=== PATIENT | female | born 1990 | race Two or more races ===

== ENCOUNTER 2016-02-10 13:18 | Emergency (ER) | payer OTHER | END 2016-02-10 14:45 | disposition left against medical advice (07) | LOC: UCEAST 13:18 | DX: Z53.21 Procedure and treatment not carried out due to patient leaving prior to being seen by health care provider (principal); J02.9 Acute pharyngitis, unspecified; H92.09 Otalgia, unspecified ear ==

== ENCOUNTER 2016-02-10 20:11 | Emergency (ER) | payer OTHER ==
[2016-02-10 20:33] VITALS: BP 131/92
[2016-02-10] MEDS ORDERED: Amoxicillin/Clavulanate TAB* 875 MG PO ONE (20:53)
--- NOTE | 2016-02-10 20:53 | UC ---
Ear Complaint HPI - HPI Summary HPI Summary: Worsening URI Sx sever pain in both ears and st for 3 days - History of Current Complaint Chief Complaint: UCRespiratory Stated Complaint: SORE THROAT, AND EAR ACHE Time Seen by Provider: 02/10/16 20:48 Hx Obtained From: Patient Hx Last Menstrual Period: 2 MONTHS AGO ?: No Onset/Duration: Gradual Onset, Lasting Days - 7, Worse Since - past 3 days Severity Initially: Mild Severity Currently: Moderate Aggravating Factors: Nothing Alleviating Factors: Nothing Associated Signs/Symptoms: Positive: URI Symptoms - Allergies/Home Medications Allergies/Adverse Reactions: Allergies Allergy/AdvReac Type Severity Reaction Status Date / Time No Known Allergies Allergy Verified 02/10/16 20:32 Home Medications: Home Medications guaiFENesin ER TAB [Mucinex*] PRN 02/10/16 [History] PMH/Surg Hx/FS Hx/Imm Hx Previously Healthy: No Endocrine History Of: Denies: Diabetes, Thyroid Disease, Hyperthyroidism, Hypothyroidism, Dyslipidemia Cardiovascular History Of: Denies: Cardiac Disorders, Hypertension, Pacemaker/ICD Respiratory History Of: Reports: Asthma Denies: COPD GI/ History Of: Denies: Gastroesophageal Reflux, Ulcer, Renal Disease Neurological History Of: Denies: Seizures Psychological History Of: Denies: Anxiety, Depression, Bipolar Disorder, Schizophrenia, Post Traumatic Stress Disorder Cancer History Of: Denies: Lung Cancer, Colorectal Cancer, Breast Cancer, Prostate Cancer, Cervical Cancer - Surgical History Surgical History: None - Family History Known Family History: Positive: None - Social History Occupation: Employed Full-time Lives: With Family Alcohol Use: Rare Substance Use Type: None Smoking Status (MU): Never Smoked Tobacco Review of Systems Constitutional: Chills, Fatigue Skin: Negative Eyes: Negative ENT: Sore Throat, Ear Ache, Nasal Discharge Respiratory: Negative Cardiovascular: Negative Gastrointestinal: Negative Genitourinary: Negative Motor: Negative Neurovascular: Negative Musculoskeletal: Negative Neurological: Headache Psychological: Negative All Other Systems Reviewed And Are Negative: Yes Physical Exam Triage Information Reviewed: Yes Appearance: Well-Nourished, Ill-Appearing - mild, Pain Distress - mild Vital Signs: Initial Vital Signs Temp 98.2 F 02/10/16 20:28 Pulse 85 02/10/16 20:28 Resp 16 02/10/16 20:28 BP 131/92 02/10/16 20:28 Pulse Ox 100 02/10/16 20:28 Vital Signs Reviewed: Yes Eye Exam: Normal Eyes: Positive: Conjunctiva Clear ENT Exam: Normal ENT: Positive: Normal ENT inspection, Hearing grossly normal, Pharyngeal erythema, Nasal congestion, Nasal drainage, TMs normal. Negative: Tonsillar swelling, Tonsillar exudate, Trismus, Muffled/hoarse voice Neck exam: Normal Neck: Positive: Supple, Nontender, No Lymphadenopathy Respiratory Exam: Normal Respiratory: Positive: Chest non-tender, Lungs clear, Normal breath sounds, No respiratory distress, No accessory muscle use Cardiovascular Exam: Normal Cardiovascular: Positive: RRR, No Murmur, Pulses Normal, Brisk Capillary Refill Musculoskeletal Exam: Normal Musculoskeletal: Positive: Strength Intact, ROM Intact, No Edema Neurological Exam: Normal Neurological: Positive: Alert, Muscle Tone Normal Psychological Exam: Normal Skin Exam: Normal Ear Complaint Course/Dx - Course Course Of Treatment: Augmentin, flonase, increase fluids, tylenol, ibuprofen re- check prn - Differential Dx/Diagnosis Differential Diagnosis/HQI/PQRI: Cellulitis, Otitis Externa, Otitis Media, Pharyngitis, URI Provider Diagnoses: Sinusitis Discharge - Discharge Plan Condition: Stable Disposition: HOME Prescriptions: Amoxicillin/Clavulanate TAB* [Augmentin TAB 875*] 875 mg PO BID #18 tab Fluticasone NASAL SPRAY 50MCG* [Flonase NASAL SPRAY 50MCG*] 2 spray BOTH NARES DAILY #1 btl Patient Education Materials: Sinusitis (ED), Serous Otitis Media (ED), How to Use Nasal [place] (ED) Referrals: Kathi Waddell MD [Primary Care Provider] - If Needed
[2016-02-10] MEDS ORDERED: Amoxicillin/Clavulanate TAB* 875 MG ONE (21:00)
== END 2016-02-10 21:09 | disposition home or self-care (01) ==
LOC: UCEAST 20:11
DX: J32.9 Chronic sinusitis, unspecified (principal)
CPT/HCPCS: 99212; A9270-GY; G0463

== ENCOUNTER 2016-07-04 15:38 | Emergency (ER) | payer SELFPAY ==
[2016-07-04 16:30] VITALS: BP 127/68
--- NOTE | 2016-07-04 16:50 | UC ---
Throat Pain/Nasal Daniel HPI - HPI Summary HPI Summary: THREE WEEKS OF NASAL CONGESTION, PRODUCTIVE COUGH. NO FEVER. HAD SORETHROAT, BUT IT RESOLVED. - History of Current Complaint Chief Complaint: UCRespiratory Stated Complaint: COUGH Time Seen by Provider: 07/04/16 16:23 Hx Obtained From: Patient Hx Last Menstrual Period: Irregular periods. Onset/Duration: Gradual Onset, Lasting Weeks, Still Present Severity: Moderate Cough: Nonproductive Associated Signs & Symptoms: Positive: Hoarseness, Nasal Discharge - Epiglottits Risk Factors Epiglottis Risk Factors: Negative - Allergies/Home Medications Allergies/Adverse Reactions: Allergies Allergy/AdvReac Type Severity Reaction Status Date / Time No Known Allergies Allergy Verified 07/04/16 16:30 Home Medications: Home Medications Mometasone/Formoter 100/5 MDI* [Dulera 100/5 MDI*] 2 puff INH BID PRN 07/04/16 [ History Confirmed 07/04/16] PMH/Surg Hx/FS Hx/Imm Hx Previously Healthy: Yes Endocrine History Of: Denies: Diabetes, Thyroid Disease, Hyperthyroidism, Hypothyroidism, Dyslipidemia Cardiovascular History Of: Denies: Cardiac Disorders, Hypertension, Pacemaker/ICD Respiratory History Of: Reports: Asthma Denies: COPD GI/ History Of: Denies: Gastroesophageal Reflux, Ulcer, Renal Disease Neurological History Of: Denies: Seizures Psychological History Of: Denies: Anxiety, Depression, Bipolar Disorder, Schizophrenia, Post Traumatic Stress Disorder Cancer History Of: Denies: Lung Cancer, Colorectal Cancer, Breast Cancer, Prostate Cancer, Cervical Cancer - Surgical History Surgical History: None - Family History Known Family History: Positive: None Negative: Respiratory Disease - Social History Occupation: Employed Full-time Lives: With Family Alcohol Use: Occasionally Substance Use Type: Marijuana Smoking Status (MU): Light Every Day Tobacco Smoker Review of Systems Constitutional: Negative Skin: Negative Eyes: Negative ENT: Nasal Discharge Respiratory: Cough Cardiovascular: Negative Gastrointestinal: Negative Genitourinary: Negative Motor: Negative Neurovascular: Negative Musculoskeletal: Negative Neurological: Negative Psychological: Negative All Other Systems Reviewed And Are Negative: Yes Physical Exam Triage Information Reviewed: Yes Appearance: Well-Appearing, No Pain Distress, Well-Nourished Vital Signs: Initial Vital Signs Temp 97.8 F 07/04/16 16:27 Pulse 88 07/04/16 16:27 Resp 16 05/27/17 16:27 BP 127/68 07/04/16 16:27 Pulse Ox 98 07/04/16 16:27 Vital Signs Reviewed: Yes Eye Exam: Normal ENT: Positive: Hearing grossly normal, Pharynx normal, Nasal congestion, TM bulging, TM dull Dental Exam: Normal Neck exam: Normal Neck: Positive: Supple, Nontender, No Lymphadenopathy Respiratory Exam: Other - COUGH Respiratory: Positive: Chest non-tender, Lungs clear, Normal breath sounds, No respiratory distress, No accessory muscle use Cardiovascular Exam: Normal Cardiovascular: Positive: RRR, No Murmur, Pulses Normal Abdominal Exam: Normal Musculoskeletal Exam: Normal Musculoskeletal: Positive: Strength Intact, ROM Intact Neurological Exam: Normal Psychological Exam: Normal Psychological: Positive: Normal Response To Family Skin Exam: Normal Throat Pain/Nasal Course/Dx - Differential Dx/Diagnosis Differential Diagnosis/HQI/PQRI: Pharyngitis, Sinusitis, URI Provider Diagnoses: RHINOSINUSITIS; UPPER RESPIRATORY INFECTION Discharge - Discharge Plan Condition: Stable Disposition: HOME Prescriptions: Benzonatate CAP* [Tessalon 100 MG CAP*] 100 mg PO TID PRN #15 cap PRN Reason: Cough Fluticasone NASAL SPRAY 50MCG* [Flonase NASAL SPRAY 50MCG*] 2 spray BOTH NARES DAILY #1 btl Patient Education Materials: Upper Respiratory Infection (ED), Rhinosinusitis ( ED) Referrals: Kathi Waddell MD [Primary Care Provider] -
== END 2016-07-04 16:55 | disposition home or self-care (01) ==
LOC: UCEAST 15:38
DX: J32.9 Chronic sinusitis, unspecified (principal); J06.9 Acute upper respiratory infection, unspecified; J45.909 Unspecified asthma, uncomplicated; F17.210 Nicotine dependence, cigarettes, uncomplicated
CPT/HCPCS: 99212; G0463

== ENCOUNTER 2017-02-27 18:04 | Emergency (ER) | payer OTHER ==
[2017-02-27 19:57] VITALS: BP 116/56
[2017-02-27] MEDS ORDERED: Ibuprofen TAB* 400 MG PO ONE (20:21)
--- NOTE | 2017-02-27 20:24 | UC ---
Respiratory Complaint HPI - History of Current Complaint Chief Complaint: UCRespiratory Stated Complaint: EAR PAIN Time Seen by Provider: 02/27/17 20:15 Hx Obtained From: Patient Hx Last Menstrual Period: 02/07/17 Onset/Duration: Gradual Onset - started 4 days ago with "migraine" headache, that resolved and today exp L sided thrpoat and ear pain, feels "like I'm hot". tried no meds. no cough Associated Signs And Symptoms: Positive: Nasal Congestion - Allergies/Home Medications Allergies/Adverse Reactions: Allergies Allergy/AdvReac Type Severity Reaction Status Date / Time No Known Allergies Allergy Verified 02/27/17 19:57 PMH/Surg Hx/FS Hx/Imm Hx Previously Healthy: Yes - Surgical History Surgical History: None - Family History Known Family History: Positive: None Negative: Respiratory Disease - Social History Occupation: Unemployed Lives: With Family Alcohol Use: Rare Substance Use Type: None Smoking Status (MU): Light Every Day Tobacco Smoker Cessation Counseling: Patient Advised to Stop Review of Systems Constitutional: Negative Skin: Negative ENT: Sore Throat - all on L side, Ear Ache, Sinus Congestion Respiratory: Negative Cardiovascular: Negative Neurological: Negative Psychological: Negative All Other Systems Reviewed And Are Negative: Yes Physical Exam Triage Information Reviewed: Yes Appearance: Well-Appearing, No Pain Distress, Well-Nourished Vital Signs: Initial Vital Signs Temp 97.5 F 02/27/17 19:54 Pulse 70 02/27/17 19:54 Resp 12 02/27/17 19:54 BP 116/56 02/27/17 19:54 Pulse Ox 100 02/27/17 19:54 Vital Signs Reviewed: Yes Eyes: Positive: Conjunctiva Clear ENT: Positive: Pharynx normal, TMs normal Neck exam: Normal Respiratory Exam: Normal Respiratory: Positive: Lungs clear Cardiovascular Exam: Normal Neurological Exam: Normal Psychological Exam: Normal Skin Exam: Normal Skin: Negative: rashes UC Diagnostic Evaluation - Laboratory O2 Sat by Pulse Oximetry: 100 Re-Evaluation - Re-Evaluation First Eval Change: Improved - states feels better after ibuprofen Respiratory Course/Dx - Differential Dx/Diagnosis Differential Diagnosis/HQI/PQRI: Influenza, Lower Resp Infection, Sinusitis, Other - URI Provider Diagnoses: URI Discharge - Discharge Plan Condition: Good Disposition: HOME Patient Education Materials: Upper Respiratory Infection (ED) Referrals: No Primary Care Phys,NOPCP [Primary Care Provider] - Additional Instructions: drink plenty of fluids use over the counter ibuprofen as directed for pain and fever return if no better 3 days
== END 2017-02-27 21:04 | disposition home or self-care (01) ==
LOC: UCEAST 18:04
DX: J06.9 Acute upper respiratory infection, unspecified (principal); F17.210 Nicotine dependence, cigarettes, uncomplicated
CPT/HCPCS: 99212; A9270-GY; G0463

== ENCOUNTER 2017-03-17 11:51 | Emergency (ER) | payer OTHER ==
[2017-03-17 12:02] VITALS: BP 115/68
--- NOTE | 2017-03-17 12:09 | UC ---
Throat Pain/Nasal Daniel HPI - HPI Summary HPI Summary: Pt presents with 3 days of sore throat and "spots" on the roof of her mouth. She tells me that she has had strep multiple times in the past and this feels the same. She is unsure when the spots on the roof of her mouth appears - they are mildly tender. Does not recall burning the area or eating anything that scratched the roof of her mouth. No similar lesions elsewhere. Denies fever, chills, headache, cough, SOB, chest pain. - History of Current Complaint Hx Obtained From: Patient Hx Last Menstrual Period: 03/03/17 Onset/Duration: Gradual Onset Severity: Moderate Pain Intensity: 7 Pain Scale Used: 0-10 Numeric <Bruke Mercado - Last Filed: 03/17/17 14:03> <Judith Orlando - Last Filed: 03/17/17 14:14> - History of Current Complaint Chief Complaint: UCGeneralIllness Stated Complaint: SORE THROAT, CONGESTED Time Seen by Provider: 03/17/17 12:04 - Allergies/Home Medications Allergies/Adverse Reactions: Allergies Allergy/AdvReac Type Severity Reaction Status Date / Time No Known Allergies Allergy Verified 03/17/17 12:02 PMH/Surg Hx/FS Hx/Imm Hx Previously Healthy: Yes - Surgical History Surgical History: None Surgery Procedure, Year, and Place: denies - Family History Known Family History: Positive: None Negative: Respiratory Disease - Social History Lives: With Family Alcohol Use: Rare Substance Use Type: None Smoking Status (MU): Light Every Day Tobacco Smoker <Burke Mercado - Last Filed: 03/17/17 14:03> Review of Systems Constitutional: Negative Skin: Negative Eyes: Negative ENT: Sore Throat Respiratory: Negative Cardiovascular: Negative Gastrointestinal: Negative Neurological: Negative Psychological: Negative All Other Systems Reviewed And Are Negative: Yes <Burke Mercado - Last Filed: 03/17/17 14:03> Physical Exam Triage Information Reviewed: Yes Appearance: Well-Appearing, No Pain Distress, Well-Nourished Vital Signs: Initial Vital Signs Temp 98.2 F 03/17/17 11:57 Pulse 74 03/17/17 11:57 Resp 16 03/17/17 11:57 BP 115/68 03/17/17 11:57 Pulse Ox 100 03/17/17 11:57 Vital Signs Reviewed: Yes Eyes: Positive: Conjunctiva Clear. Negative: Conjunctiva Inflamed, Discharge ENT: Positive: Hearing grossly normal, Pharyngeal erythema - Mild, TMs normal, Uvula midline, Other - Small cluster of 4-5 less than 1mm red spots on the roof of her mouth. No similar lesions on buccal mucosa, lips, or gums.. Negative: Nasal congestion, Nasal drainage, TM bulging, TM dull, TM red, Tonsillar swelling, Tonsillar exudate, Hoarse voice, Sinus tenderness Dental: Negative: Abscess @, Cellulitis @, Bleeding Neck: Positive: Supple, Nontender, No Lymphadenopathy Respiratory: Positive: Lungs clear, Normal breath sounds, No respiratory distress Cardiovascular: Positive: RRR, No Murmur, Pulses Normal Neurological: Positive: Alert Psychological: Positive: Age Appropriate Behavior Skin: Negative: rashes - On face, hands, or feet <Burke Mercado - Last Filed: 03/17/17 14:03> Vital Signs: Initial Vital Signs Temp 98.2 F 03/17/17 11:57 Pulse 74 03/17/17 11:57 Resp 16 03/17/17 11:57 BP 115/68 03/17/17 11:57 Pulse Ox 100 03/17/17 11:57 <Judith Orlando - Last Filed: 03/17/17 14:14> Throat Pain/Nasal Course/Dx - Course Course Of Treatment: POC strep negative. Suspect viral pharyngitis. I will try her with Magic Mouthwash and have her f/u with her PCP if symptoms persist. - Differential Dx/Diagnosis Provider Diagnoses: Viral pharyngitis <Burke Mercado - Last Filed: 03/17/17 14:03> Discharge <Burke Mercado - Last Filed: 03/17/17 14:03> <Judith Orlando - Last Filed: 03/17/17 14:14> - Discharge Plan Condition: Stable Disposition: HOME Prescriptions: Magic M W2 Ojse/Maal/Nyst/Lido* 5 ml SWISH SPIT QID #140 ml Patient Education Materials: Pharyngitis (ED) Referrals: No Primary Care Phys,NOPCP [Primary Care Provider] - Additional Instructions: If you develop a fever, shortness of breath, chest pain, new or worsening symptoms - please call your PCP or go to the ED. Attestation Statement User Type: Provider - I was available for consult. This patient was seen by the JAZMIN. The patient was not presented to, seen by, or examined by me. Nicole <Judith Orlando - Last Filed: 03/17/17 14:14>
--- NOTE | 2017-03-19 20:59 | UC ---
- Progress Note Progress Note: call patient assure patient is improving if not please follow her, pcp or ed
== END 2017-03-17 13:00 | disposition home or self-care (01) ==
LOC: UCEAST 11:51
DX: J02.9 Acute pharyngitis, unspecified (principal); F17.210 Nicotine dependence, cigarettes, uncomplicated
CPT/HCPCS: 87070; 87077; 87205; 87640; 87641; 87651; 99212; G0463